=== PATIENT | female | born 1995 | race Caucasian/White ===

== ENCOUNTER 2021-06-15 12:03 | Emergency (ER) | payer OTHER ==
[2021-06-15 12:55] LABS: HEMOGLOBIN 12.6 gm/dl (12.3-15.3); RED BLOOD COUNT 4.52 M/UL (4.00-5.10); WHITE BLOOD COUNT 8.5 K/UL (4.5-11.0)
[2021-06-15 13:09] LABS: BUN/CREATININE RATIO 15 (0-10)
[2021-06-15] MEDS ORDERED: PSEUDOEPHEDRINE60 MG PO (16:30)
[2021-06-15] MEDS ORDERED: FLONASE 0.05% N16 GM (16:30)
== END 2021-06-15 16:40 | disposition home or self-care (01) ==
LOC: ER1 12:03
PROVIDERS: Nurse Practitioner
DX: J06.9 Acute upper respiratory infection, unspecified (principal); J32.9 Chronic sinusitis, unspecified; Z20.822 Contact with and (suspected) exposure to COVID-19
CPT/HCPCS: 0240U; 70450; 71045; 80053; 85025; 99284